=== PATIENT | male | born 1950 | race Caucasian/White ===

== ENCOUNTER 2024-07-10 11:27 | Emergency (ER) | payer OTHER, MEDICARE, SELFPAY ==
[2024-07-10 11:27] VITALS: BP 97/68; PULSE 58; RESP 14; TEMP 36.6; O2SAT 97; BMI 23.8
--- NOTE | 2024-07-10 11:46 | CT_ITS ---
PROCEDURE: ABDOMEN/PELVIS WITH CONTRAST 07/10/2024 REASON FOR EXAM: WEIGHT LOSS, PAINLESS JAUNDICE HISTORY OF MELANOMA currently on immunotherapy for lung cancer. TECHNIQUE: Abdomen and pelvis CT with intravenous contrast. Coronal and Sagittal reconstruction series were provided. PATIENT PREPARATION: Per protocol ORAL CONTRAST TYPE: None. CONTRAST: Isovue 370 VOLUME: 100 mL One or more dose reduction techniques were used (e.g., Automated exposure control, adjustment of the mA and/or kV according to patient size, use of iterative reconstruction technique. RADIATION DOSE SUMMARY: CTDlvol: 16 mGy DLP: 923 mGycm COMPARISON: None. FINDINGS: Lung bases: Consolidation/atelectasis within the right middle lobe. Bibasilar atelectasis/scarring. Liver: The liver is normal in size without suspicious hepatic mass. The major portal veins are patent. No biliary ductal dilation. Gallbladder: No radiopaque stones within the gallbladder. Spleen: Normal in size. Pancreas: The pancreas is unremarkable without large pancreatic mass. The pancreatic duct is nondilated. Adrenals: Left adrenal nodule, most compatible with adenoma. Kidneys: Bilateral renal cysts and additional hypodensities. No hydronephrosis or nephrolithiasis. Bladder: Distended and unremarkable. Reproductive Organs: Surgical clips/fiducial markers within the prostate bed. Bowel: Contrast material opacifies the stomach and small bowel loops. The bowel loops are normal in caliber. Mild distal colonic diverticulosis. No ascites or pneumoperitoneum. Normal appendix. Lymph nodes: No suspicious lymph node enlargement. Vasculature: Moderate mixed plaque of the aortoiliac vessels. Bones: Prior posterior instrumentation and spinal fixation of the lower lumbar spine. Well-circumscribed osteolytic lesion within the right ischium, likely benign. CT/Abdomen/Pelvis WITH Contrast IMPRESSION: 1. No acute abdominopelvic finding. 2. Left adrenal nodule, most compatible with an adenoma. Correlation with prio r imaging recommended. Reading Location: [id number]
--- NOTE | 2024-07-10 11:51 | EX.ED.DYSGE1 ---
HPI <Dr. Cal Dawn MD - Last Filed: 07/11/24 09:20> History of Present Illness Chief Complaint: Abn Labs Detail of Chief Complaint: Abnormal labs with jaundice Informant: patient, spouse/S.O. and PCP (His physician called the ER and raise concern for autoimmune complications due to immunotherapy.) Onset/Context/Timing Onset: Days Context: Sudden Onset Timing: Continuous Quality: Painless jaundice Location: Hepatobiliary Current Severity: Unknown Maximum Severity: Unknown Worsened by: Nothing Relieved by: Nothing Associated Symptoms Associated Symptoms: Unintentional weight loss of 15 pounds past month Narrative Narrative: Patient is a 74-year-old male. He did go out once a week until 1 month ago. He would have 6 or 7 beers per week at one setting. He denies abdominal pain or back pain. He has history of melanoma. Melanoma apparently encased his trachea requiring a stent. He was told to come to the nearest facility versus going to the [place]. He denies fever, chills night sweats. Nuys headache, visual, ocular auditory symptoms. He denies chest discomfort or shortness of breath. He denies coffee-ground emesis or hematemesis. He does have dark stool but not black or maroon stool. He denies orthostatic symptoms. His immunotherapy is combination Ipilimumab and nivolumab. There is a possibility that autoimmune inflammatory response. His physician is very concerned and recommended high-dose steroids. Prior similar symptoms: No Recent Illness/Hospitalization: No PFSH <Dr. Cal Dawn MD - Last Filed: 07/11/24 09:20> PFSH Home Medications ?Medication ?Instructions ?Recorded ?Last Taken ?Type albuterol sulfate 90 mcg/actuation 2 inh inhalation Q4H PRN shortness 07/10/24 Unknown History aerosol inhaler (Ventolin HFA) of breath or wheezing ammonium lactate 12 % topical cream 1 applic topical DAILY PRN FACE 07/10/24 Unknown History AND ARMS apixaban 5 mg tablet 5 mg PO BID 07/10/24 07/09/24 History cholecalciferol (vitamin D3) 50 50 mcg PO DAILY 07/10/24 07/09/24 History mcg (2,000 unit) tablet hydrochlorothiazide 25 mg tablet 12.5 mg PO DAILY 07/10/24 07/09/24 History ipratropium 0.5 mg-albuterol 3 mg 3 ml inhalation 4X/DAY 07/10/24 07/09/24 History (2.5 mg base)/3 mL nebulization soln ketoconazole 2 % shampoo 1 applic topical DAILY 07/10/24 07/09/24 History metoprolol succinate 100 mg 100 mg PO DAILY 07/10/24 07/09/24 History tablet,extended release 24 hr simvastatin 80 mg tablet 40 mg PO QHS 07/10/24 07/09/24 History sodium chloride 0.9 % for 5 ml inhalation BID 07/10/24 07/09/24 History nebulization tadalafil 20 mg tablet (Cialis) 20 mg PO PRN PRN sexual activity 07/10/24 Unknown History Allergy/AdvReac Type Severity Reaction Status Date / Time No Known Allergies Allergy Verified 07/10/24 11:27 Social History (Updated 07/10/24 @ 11:[address] Cal Dawn MD) Smoking Status: Former smoker alcohol intake: former year quit: Quit ROS <Dr. Cal Dawn MD - Last Filed: 07/11/24 09:20> ROS ED Constitutional Constitutional ED: Reports weight loss; Denies chills, fever(s), subjective or sweats Eyes Eyes: Denies blurry vision or change in vision ENT ENT ED: Denies ear pain, rhinorrhea or sore throat Cardiovascular Cardiovascular: Denies chest pain, orthopnea, palpitations, paroxysmal nocturnal dyspnea or racing heartbeat Respiratory/Chest Respiratory/Chest: Denies cough, dyspnea, dyspnea on exertion, orthopnea or paroxysmal nocturnal dyspnea Gastrointestinal Gastrointestinal: Denies abdominal pain, constipation, diarrhea, melena, nausea or vomiting Genitourinary Genitourinary ED: Denies dysuria, hematuria or urinary frequency Musculoskeletal Musculoskeletal: Denies arthralgias, back pain or myalgias Integumentary Denies rash Neurologic Neurologic: Reports weakness Psychiatric Psychiatric: Denies anxiety Endocrine Endocrinology: Denies cold intolerance or heat intolerance Hematologic/Lymphatic Hematologic/Lymphatic: Denies easy bleeding, easy bruising or lymphadenopathy EXAM <Dr. Cal Dawn MD - Last Filed: 07/11/24 09:20> Physical Exam Const Vital Signs: 07/10/24 11:27 07/10/24 11:27 07/10/24 13:27 Temperature 98 F Temperature Source Temporal Pulse Rate 58 L 55 L Respiratory Rate 14 16 Respiratory Effort Normal Non-Labored Respiratory Pattern Irregular Blood Pressure 97/68 125/63 H Blood Pressure Mean 77 83 Pulse Ox 97 95 Oxygen Delivery Method Room Air 07/10/24 15:00 07/10/24 17:00 07/10/24 19:00 Temperature Temperature Source Pulse Rate 55 L 58 L 56 L Respiratory Rate 14 16 13 Respiratory Effort Respiratory Pattern Blood Pressure 122/65 H 128/68 H 138/66 H Blood Pressure Mean 84 88 90 Pulse Ox 94 96 96 Oxygen Delivery Method Room Air Room Air 07/10/24 19:39 Temperature 97.6 F L Temperature Source Pulse Rate 74 Respiratory Rate 21 H Respiratory Effort Respiratory Pattern Blood Pressure 138/66 H Blood Pressure Mean 90 Pulse Ox 95 Oxygen Delivery Method Positive well nourished and well developed Constitutional Narrative: Patient is yellow in appearance. His blood pressure is low. He appears in no distress. General Appearance ED: well developed and NAD HEENT Reports dry mucous membranes HEENT Narrative: Head is atraumatic, cephalic. Ears normal. Nares patent. Posterior pharynx is normal. Mouth ED: Yes dry mucous membranes Mouth: dry mucous membranes Eyes PERRL and EOMs intact bilaterally General Eye ED: Yes scleral icterus Neck no lymphadenopathy, supple and no JVD Resp normal respiratory effort and clear to auscultation bilaterally Cardio regular rate, regular rhythm, S1 normal heart sound, S2 normal heart sound and no murmurs GI normal to inspection, nondistended, normoactive bowel sounds, non-tender, non-distended and no masses; Negative for hepatosplenomegaly Back/Spine no CVA tenderness Extremity normal to inspection Neuro oriented x3 and CN's II-XII intact bilaterally Sensorium / Orientation: alert Psych mental status grossly normal Skin no rashes or lesions noted, no wounds and skin turgor normal General Skin Exam: jaundice <Dr. Daern Simms, DO - Last Filed: 07/10/24 18:38> Physical Exam Const Vital Signs: 07/10/24 11:27 07/10/24 11:27 07/10/24 13:27 Temperature 98 F Temperature Source Temporal Pulse Rate 58 L 55 L Respiratory Rate 14 16 Respiratory Effort Normal Non-Labored Respiratory Pattern Irregular Blood Pressure 97/68 125/63 H Blood Pressure Mean 77 83 Pulse Ox 97 95 Oxygen Delivery Method Room Air 07/10/24 15:00 07/10/24 17:00 07/10/24 19:00 Temperature Temperature Source Pulse Rate 55 L 58 L 56 L Respiratory Rate 14 16 13 Respiratory Effort Respiratory Pattern Blood Pressure 122/65 H 128/68 H 138/66 H Blood Pressure Mean 84 88 90 Pulse Ox 94 96 96 Oxygen Delivery Method Room Air Room Air 07/10/24 19:39 Temperature 97.6 F L Temperature Source Pulse Rate 74 Respiratory Rate 21 H Respiratory Effort Respiratory Pattern Blood Pressure 138/66 H Blood Pressure Mean 90 Pulse Ox 95 Oxygen Delivery Method MDM <Dr. Cal Dawn MD - Last Filed: 07/11/24 09:20> [facility] Narrative Medical decision making narrative: Patient with painless jaundice and weight loss. Concerned this is related to his melanoma with metastasis to liver or pancreas. Will obtain CT of the abdomen and pelvis with IV and oral contrast. Appropriate blood work was ordered as well. Will attempt to review records from outside facility since there are none available at [facility] Lab Data Attestation: I reviewed the patient's lab results. Lab results narrative: CBC is unremarkable. PT/INR is slightly elevated. This was obtained to assess his liver function. Electrolyte panel is essentially unremarkable creatinine slightly elevated 1.34 with an estimated GFR 56. Liver enzymes revealed total bili of 18, direct bili of 12.5, AST and ALT of 1023 and 1099 respectively. Alkaline phosphatase is elevated at 205. Lipase is elevated 137 which is approximately 2 times normal. Labs: Laboratory Results - last 24 hr 07/10/24 11:49 WBC 8.1 RBC 4.86 Hgb 14.7 Hct 43.3 MCV 89.1 MCH 30.2 MCHC 33.9 RDW Std Deviation 62.7 H RDW Coeff of Kelly 19.9 H Plt Count 187 MPV 9.9 Immature Gran % (Auto) 0.400 Neut % (Auto) 47.3 Lymph % (Auto) 23.3 Swain % (Auto) 17.2 H Eos % (Auto) 10.2 H Baso % (Auto) 1.6 H Absolute Neuts (auto) 3.8 Absolute Lymphs (auto) 1.88 Nucleated RBC % 0 PT 22.5 H INR 1.9 Sodium 139 Potassium 4.4 Chloride 106 Carbon Dioxide 21.6 Anion Gap 12 BUN 12 Creatinine 1.34 H Estim Creat Clear Calc 56.23 Est GFR (MDRD) Non-Af 56 L BUN/Creatinine Ratio 8.9 L Glucose 110 H Lactic Acid 1.6 Calcium 9.6 Total Bilirubin 18.00 H* Direct Bilirubin 12.50 H AST 1023 H ALT 1099 H Alkaline Phosphatase 205 H Total Protein 6.2 Albumin 3.5 Globulin 2.7 Lipase 137 H Radiography Diagnostic Testing: Clinical Impression(s) from Imaging Studies Abdomen/Pelvis CT 07/10/24 11:46 IMPRESSION: 1. No acute abdominopelvic finding. 2. Left adrenal nodule, most compatible with an adenoma. Correlation with prior imaging recommended. Reading Location: [facility] <Dr. Daren Simms, DO - Last Filed: 07/10/24 18:38> [facility] Lab Data Labs: Laboratory Results - last 24 hr 07/10/24 11:49 WBC 8.1 RBC 4.86 Hgb 14.7 Hct 43.3 MCV 89.1 MCH 30.2 MCHC 33.9 RDW Std Deviation 62.7 H RDW Coeff of Kelly 19.9 H Plt Count 187 MPV 9.9 Immature Gran % (Auto) 0.400 Neut % (Auto) 47.3 Lymph % (Auto) 23.3 Swain % (Auto) 17.2 H Eos % (Auto) 10.2 H Baso % (Auto) 1.6 H Absolute Neuts (auto) 3.8 Absolute Lymphs (auto) 1.88 Nucleated RBC % 0 PT 22.5 H INR 1.9 Sodium 139 Potassium 4.4 Chloride 106 Carbon Dioxide 21.6 Anion Gap 12 BUN 12 Creatinine 1.34 H Estim Creat Clear Calc 56.23 Est GFR (MDRD) Non-Af 56 L BUN/Creatinine Ratio 8.9 L Glucose 110 H Lactic Acid 1.6 Calcium 9.6 Total Bilirubin 18.00 H* Direct Bilirubin 12.50 H AST 1023 H ALT 1099 H Alkaline Phosphatase 205 H Total Protein 6.2 Albumin 3.5 Globulin 2.7 Lipase 137 H Radiography Diagnostic Testing: Clinical Impression(s) from Imaging Studies Abdomen/Pelvis CT 07/10/24 11:46 IMPRESSION: 1. No acute abdominopelvic finding. 2. Left adrenal nodule, most compatible with an adenoma. Correlation with prior imaging recommended. Reading Location: [facility] CT scan of the abdomen and pelvis was obtained. There is no acute abnormality noted. There is no liver metastasis or pancreatic metastasis noted. There is a left adrenal nodule that is most compatible with adenoma. This was interpreted by the radiologist and was also independently reviewed by myself. Treatment and Re-Evaluation :: Patient was advised of his findings. Patient gets all of his care at the [facility]. Case was discussed with transfer center at [facility]. Patient was accepted to the oncology service there. Patient will be transferred there tonight. Patient and family understand and are agreeable with the plan. All questions were answered. Discharge Plan Triage Chief Complaint: Abn Labs ED Provider: Cal Dawn Dx/Rx/DC Orders Clinical Impression: Jaundice, Melanoma, Pancreatitis Prescriptions: No Action ipratropium-albuterol 0.5 mg-3 mg(2.5 mg base)/3 mL solution for nebulization 3 ml inhalation 4X/DAY apixaban 5 mg tablet 5 mg PO BID albuterol sulfate [Ventolin HFA] 90 mcg/actuation HFA aerosol inhaler 2 inh inhalation Q4H PRN (Reason: shortness of breath or wheezing) ammonium lactate 12 % cream 1 applic topical DAILY PRN (Reason: FACE AND ARMS) cholecalciferol (vitamin D3) 50 mcg (2,000 unit) tablet 50 mcg PO DAILY hydrochlorothiazide 25 mg tablet 12.5 mg PO DAILY ketoconazole 2 % shampoo 1 applic topical DAILY metoprolol succinate 100 mg tablet extended release 24 hr 100 mg PO DAILY simvastatin 80 mg tablet 40 mg PO QHS sodium chloride 0.9 % solution for nebulization 5 ml inhalation BID tadalafil [Cialis] 20 mg tablet 20 mg PO PRN PRN (Reason: sexual activity) Rx Instructions: administer approximately 30min before sexual activity; do not use more than 1 dose per 24hrs [facility] [facility] [Primary Care Provider] - Print Language: Portuguese Disposition Disposition: Acute Care Hospital Discharge Location: Department of [facility] Discharge Date/Time: 07/10/24 19:40
[2024-07-10 12:02] LABS: Absolute Lymphocyte Count 1.88 X10^3/uL (0.83-4.51); Absolute Neutrophil Count 3.8 X10^3/uL (2.0-7.7); Basophil# 0.13 X10^3/uL; Basophil% 1.6 % (0-1); Eosinophil# 0.82 X10^3/uL; Eosinophils% 10.2 % (0-5); Hematocrit 43.3 % (40-54); Hemoglobin 14.7 g/dL (13.0-16.5); Lymphocyte # 1.88 X10^3/ul (0.83-4.51); Lymphocyte % 23.3 % (19-41); Mean Corp Hgb Conc 33.9 g/dL (32-36); Mean Corpuscular Hgb 30.2 pg (27.0-32.0); Mean Corpuscular Volume 89.1 fL (80-94); Mean Platelet Vol. 9.9 fl (6.2-12.0); Monocyte# 1.39 X10^3/uL; Monocyte% 17.2 % (0-10); NRBC Flagged by Analyzer 0 % (0-5); Neutrophil # 3.82 X10^3/uL (2.7-7.7); Neutrophil % 47.3 % (47-70); Platelet Count 187 K/mm3 (150-450); RBC Distribution Width CV 19.9 % (11.6-14.6); RBC Distribution Width SD 62.7 fl (35.1-43.9); Red Blood Count 4.86 M/mm3 (4.6-6.2); White Blood Count 8.1 K/mm3 (4.4-11.0)
[2024-07-10 12:11] LABS: International Normalized Ratio 1.9; Prothrombin Time (Protime)PT. 22.5 SECONDS (11.7-14.9)
[2024-07-10 13:05] LABS: Lactic Acid 1.6 mmol/L (0.0-2.0); Lipase 137 U/L (13-75)
[2024-07-10 13:27] VITALS: BP 125/63; PULSE 55; RESP 16; O2SAT 95
[2024-07-10 13:28] LABS: AST(SGOT) 1023 U/L (<=37); Alanine Aminotransfer ALT/SGPT 1099 U/L (<=46); Albumin, Serum 3.5 g/dL (3.4-4.8); Alkaline Phosphatase 205 U/L (40-129); Anion Gap 12 (5-15); BUN 12 mg/dL (4-19); BUN/Creat Ratio 8.9 RATIO (10-20); Calcium,Total 9.6 mg/dL (7.6-11.0); Carbon Dioxide 21.6 mmol/L (21.0-32.0); Chloride 106 mmol/L (98-108); Creatinine, Serum 1.34 mg/dL (0.70-1.20); EST Glomerular Filtration Rate 56 (>60); Estimated Creatinine Clearance 56.23 ml/min (50-250); Globulin 2.7 g/dL (2.2-4.2); Glucose 110 mg/dL (70-99); Potassium 4.4 mmol/L (3.3-5.1); Protein, Total 6.2 g/dL (5.9-8.4); Sodium Level 139 mmol/L (133-145)
[2024-07-10 15:00] VITALS: BP 122/65; PULSE 55; RESP 14; O2SAT 94
[2024-07-10 17:00] VITALS: BP 128/68; PULSE 58; RESP 16; O2SAT 96
[2024-07-10 19:00] VITALS: BP 138/66; PULSE 56; RESP 13; O2SAT 96
--- NOTE | 2024-07-10 19:14 | ED.RN ---
report call attempted to [facility], hung up on. will attempt at a later tme
--- NOTE | 2024-07-10 19:38 | ED.RN ---
REPORT GIVEN TO FIDENCIO BARRETT
[2024-07-10 19:39] VITALS: BP 138/66; PULSE 74; RESP 21; TEMP 36.4; O2SAT 95
== END 2024-07-10 19:40 ==
PROVIDERS: Emergency Provider Emergency Medicine; Visit Provider Emergency Medicine
DX: R17 Unspecified jaundice (principal); C43.9 Malignant melanoma of skin, unspecified; K85.90 Acute pancreatitis without necrosis or infection, unspecified; I95.9 Hypotension, unspecified; R63.4 Abnormal weight loss; Z79.01 Long term (current) use of anticoagulants; Z79.899 Other long term (current) drug therapy; Z87.891 Personal history of nicotine dependence
CPT/HCPCS: 74177; 80048; 80076; 83605; 83690; 85025; 85610; 99285; Q9967